=== PATIENT | male | born 1980 | race Two or more races ===

== ENCOUNTER 2018-09-04 00:10 | Emergency (ER) | payer OTHER ==
[~2018-09-04] VITALS: Ht 170.2 cm; Wt 70.3 kg
[2018-09-04 00:31] VITALS: Ht 170.2 cm; Wt 70.3 kg
[2018-09-04 00:38] VITALS: BP 133/85
== END 2018-09-04 01:10 | disposition home or self-care (01) ==
LOC: ED 00:10
DX: L05.91 Pilonidal cyst without abscess (principal)
CPT/HCPCS: J0690